=== PATIENT | male | born 1965 | race American Indian/Alaskan Native ===

== ENCOUNTER 2021-03-25 05:25 | Emergency (ER) | payer MEDICARE ==
[2021-03-25] MEDS ORDERED: NEOMY 3.5 MG/BACIT 400 UNITS/POLY B 5000 UNITS/GM OINT PACKET TP ONE (10:18)
[2021-03-25] MEDS ORDERED: ACETAMINOPHEN 325 MG TAB PO ONE (10:18)
[2021-03-25] MEDS ORDERED: LIDOCAINE (1%) 10 MG/1 ML VIAL 20 ML MDV INFILTRATI ONE (10:18)
[2021-03-25] MEDS ORDERED: SODIUM CHLORIDE 0.9% IRR 500 ML BOTTLE IR SCH (10:30)
--- NOTE | 2021-03-25 11:16 | XRay Report ---
LEFT SHOULDER 3 VIEWS INDICATION / CLINICAL INFORMATION: Left shoulder pain. COMPARISON: None available. FINDINGS: BONES / JOINT(S): There is moderate spurring involving the undersurface of the anterior acromion. The re are mild degenerative changes involving the acromioclavicular joint. There are mild to moderate as sociated degenerative changes involving the humeral head. There is no evidence of acute fracture, sub luxation or destructive lesion. SOFT TISSUES: No significant abnormality. ADDITIONAL FINDINGS: The visualized left lung is clear. Signer Name: Pablo Charles MD Signed: 03/25/2021 11:11 AM Workstation Name: [id number]
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
[2021-03-25 12:09] VITALS: BP 140/88
== END 2021-03-25 12:08 | disposition home or self-care (01) ==
LOC: ED 05:25
DX: S01.91XA Laceration without foreign body of unspecified part of head, initial encounter (principal); S40.012A Contusion of left shoulder, initial encounter; Z79.1 Long term (current) use of non-steroidal anti-inflammatories (NSAID); W19.XXXA Unspecified fall, initial encounter; Y93.89 Activity, other specified; Y92.89 Other specified places as the place of occurrence of the external cause; Y99.8 Other external cause status
CPT/HCPCS: 12002; 73030; 93005; 99283; A6250